=== PATIENT | female | born 1985 | race Caucasian/White ===

== ENCOUNTER 2024-06-20 17:04 | Emergency (ER) | payer BC ==
[~2024-06-20] VITALS: Ht 167.6 cm; Wt 114.0 kg
[2024-06-20 17:18] VITALS: BP 154/79; PULSE 61; RESP 16; O2SAT 99
[2024-06-20] MEDS: HYDROcodone/acetaminophen 10/325mg tab PO ONE (18:40)
[2024-06-20] MEDS: ketorolac trometh 30MG/ML vial 30 MG/ML VIAL IV ONE (18:40)
[2024-06-20 19:57] VITALS: TEMP 98.1
== END 2024-06-20 20:01 | disposition home or self-care (01) ==
LOC: ER 17:05
DX: M54.2 Cervicalgia (principal); M54.50 Low back pain, unspecified; V89.2XXA Person injured in unspecified motor-vehicle accident, traffic, initial encounter; Y93.89 Activity, other specified; Y92.89 Other specified places as the place of occurrence of the external cause; Y99.8 Other external cause status
CPT/HCPCS: 72040; 96374; 99283; J1885